=== PATIENT | male | born 1940 | race Caucasian/White ===

== ENCOUNTER 2018-04-11 13:53 | Emergency (ER) | payer BC, MEDICARE ==
[2018-04-11] MEDS ORDERED: Aspirin 81 mg CHEW TAB* 81 MG TAB.CHEW PO ONE (14:26)
[2018-04-11 15:51] LABS: ABS Basophils 0.1 10^3/ul (0-0.2); ABS Eosinophils 0.6 10^3/ul (0-0.6); ABS Lymphocytes 2.5 10^3/ul (1.0-4.8); ABS Monocytes 1.2 10^3/ul (0-0.8); ABS Neutrophils 6.6 10^3/ul (1.5-7.7); ABS Nucleated RBC 0 10^3/ul; Eosinophil % 5.1 %; Hematocrit 45 % (42-52); Hemoglobin 15.2 g/dl (14.0-18.0); Lymphocyte % 23.2 %; Mean Corpuscular HGB Conc 34 g/dl (31-36); Mean Corpuscular Hemoglobin 32 pg (27-31); Mean Corpuscular Volume 95 fL (80-94); Nucleated Red Blood Cells % 0; Platelet Count 209 10^3/ul (150-450); Red Blood Count 4.71 10^6/ul (4.00-5.40); Red Cell Distribution Width 14 % (10.5-15)
[2018-04-11 15:58] LABS: Activated Partial Thrombo Time 29.5 seconds (26.0-36.3); INR 0.98 (0.77-1.02)
[2018-04-11 16:06] LABS: Albumin 4.2 g/dL (3.2-5.2); Albumin/Globulin Ratio 1.4 (1-3); BUN/Creatinine Ratio 21.2 (8-20); Calcium 9.8 mg/dL (8.6-10.3); EGFR Non-African American 63.3 (>60); Magnesium 1.9 mg/dL (1.9-2.7); Potassium 4.7 mmol/L (3.5-5.0); Total Bilirubin 0.6 mg/dL (0.2-1.0); Total Protein 7.2 g/dL (6.4-8.9)
[2018-04-11 16:11] LABS: Myoglobin 26.2 ng/mL (17.4-105.7)
[2018-04-11 16:16] LABS: Urine Appearance Clear; Urine Bacteria Absent (Absent); Urine Bilirubin Negative (Negative); Urine Blood 1+ (Negative); Urine Color Yellow; Urine Glucose Negative (Negative); Urine Ketones Negative (Negative); Urine Nitrite Negative (Negative); Urine Protein Negative (Negative); Urine Red Blood Cell Trace(0-2/hpf) (Absent); Urine Specific Gravity 1.016 (1.010-1.030); Urine Urobilinogen Negative (Negative); Urine White Blood Cell Trace(0-5/hpf) (Absent)
--- NOTE | 2018-04-11 16:49 | ED ---
Respiratory - HPI Summary HPI Summary: Patient is a 77-year-old male presenting to the ED from his doctor's office, Dr. Rodas. Patient states over the past 6 weeks he has been having a cough with some wheezing. He denies any chest pain here. He denies any SOB. He denies any fevers, sweats, chills. He states he is feeling at his baseline, denies any weakness, urinary symptoms, back pain, abdominal pain, headache. History of hypertension and takes metoprolol and lisinopril. States he is medication compliant and has not missed a dose. Physician today noted an EKG change from 2016 and wanted to further workup. He continues to deny any chest pain, however comes to the ED for further evaluation. - History of Current Complaint Chief Complaint: EDGeneral Stated Complaint: GENERAL ILLNESS Time Seen by Provider: 04/11/18 14:10 Hx Obtained From: Patient Pain Intensity: 0 Character: Wheezing, Cough (Nonproductive) Sputum Amount: Scant Sputum Color: Clear Aggravating Factor(s): Nothing Alleviating Factor(s): Nothing Associated Signs and Symptoms: Negative - Allergy/Home Medications Allergies/Adverse Reactions: Allergies Allergy/AdvReac Type Severity Reaction Status Date / Time No Known Allergies Allergy Verified 06/17/15 06:23 Home Medications: Home Medications Doxycycline Hyclate 100 mg PO BID 04/11/18 [History Confirmed 04/11/18] Omeprazole 20 mg PO DAILY 04/11/18 [History Confirmed 04/11/18] PMH/Surg Hx/FS Hx/Imm Hx Previously Healthy: Yes Cardiovascular History: Reports: Hx Hypertension Musculoskeletal History: Reports: Hx Arthritis - RIGHT KNEE, LOWER BACK Sensory History: Reports: Hx Cataracts - BILATERAL, Hx Contacts or Glasses - READING GLASSES, Hx Hearing Aid - BILATERAL Opthamlomology History: Reports: Hx Cataracts - BILATERAL, Hx Contacts or Glasses - READING GLASSES - Surgical History Surgery Procedure, Year, and Place: UMBILICAL HERNIA REPAIR-[facility]. BILATERAL CARPAL TUNNEL RELEASE- [place] Hx Anesthesia Reactions: No - Immunization History Hx Pertussis Vaccination: No Immunizations Up to Date: Yes Infectious Disease History: No Infectious Disease History: Denies: Traveled Outside the [place] in Last 30 Days - Social History Occupation: Unemployed Lives: With Family Alcohol Use: Occasionally Hx Substance Use: No Substance Use Type: Reports: None Hx Tobacco Use: Yes Smoking Status (MU): Former Smoker Amount Used/How Often: 1 PPD X 10 YEARS Have You Smoked in the Last Year: No Review of Systems Negative: Fever, Chills, Fatigue, Skin Diaphoresis Negative: Epistaxis, Dental Pain, Sore Throat Negative: Palpitations, Chest Pain Positive: Cough. Negative: Shortness Of Breath Negative: Abdominal Pain, Vomiting, Diarrhea Negative: Arthralgia, Myalgia Skin: Negative Negative: Headache, Weakness, Paresthesia Psychological: Normal All Other Systems Reviewed And Are Negative: Yes Physical Exam Triage Information Reviewed: Yes Vital Signs On Initial Exam: Initial Vitals Temp Pulse Resp BP Pulse Ox 98.3 F 84 20 160/81 98 04/11/18 13:56 04/11/18 13:56 04/11/18 13:56 04/11/18 13:56 04/11/18 13:56 Vital Signs Reviewed: Yes Appearance: Positive: Well-Appearing, Well-Nourished Skin: Positive: Warm, Skin Color Reflects Adequate Perfusion Head/Face: Positive: Normal Head/Face Inspection Eyes: Positive: EOMI, MELITON, Conjunctiva Clear Neck: Positive: Supple, No Lymphadenopathy Respiratory/Lung Sounds: Positive: Clear to Auscultation, Breath Sounds Present Cardiovascular: Positive: RRR, Pulses are Symmetrical in both Upper and Lower Extremities. Negative: Leg Edema Left, Leg Edema Right Musculoskeletal: Positive: Normal, Strength/ROM Intact Neurological: Positive: Speech Normal Psychiatric: Positive: Normal, Affect/Mood Appropriate Diagnostics - Vital Signs Vital Signs Temp Pulse Resp BP Pulse Ox 04/11/18 15:42 80 20 110/79 97 04/11/18 15:08 61 15 116/75 95 04/11/18 15:00 63 12 97 04/11/18 14:45 71 19 141/78 96 04/11/18 14:09 78 12 97 04/11/18 14:08 158/81 04/11/18 13:56 98.3 F 84 20 160/81 98 - Laboratory Lab Results: Lab Results 04/11/18 04/11/18 04/11/18 Range/Units 14:26 15:35 15:35 WBC (3.5-10.8) 10^3/ul RBC (4.00-5.40) 10^6/ul Hgb (14.0-18.0) g/dl Hct (42-52) % MCV (80-94) fL MCH (27-31) pg MCHC (31-36) g/dl RDW (10.5-15) % Plt Count (150-450) 10^3/ul MPV (7.4-10.4) fL Neut % (Auto) % Lymph % (Auto) % [place] % (Auto) % Eos % (Auto) % Baso % (Auto) % Absolute Neuts (auto) (1.5-7.7) 10^3/ul Absolute Lymphs (auto) (1.0-4.8) 10^3/ul Absolute Monos (auto) (0-0.8) 10^3/ul Absolute Eos (auto) (0-0.6) 10^3/ul Absolute Basos (auto) (0-0.2) 10^3/ul Absolute Nucleated RBC 10^3/ul Nucleated RBC % INR (Anticoag Therapy) 0.98 (0.77-1.02) APTT 29.5 (26.0-36.3) seconds Sodium (135-145) mmol/L Potassium (3.5-5.0) mmol/L Chloride (101-111) mmol/L Carbon Dioxide (22-32) mmol/L Anion Gap (2-11) mmol/L BUN (6-24) mg/dL Creatinine (0.67-1.17) mg/dL Est GFR ( Amer) (>60) Est GFR (Non-Af Amer) (>60) BUN/Creatinine Ratio (8-20) Glucose (70-100) mg/dL Lactic Acid (0.5-2.0) mmol/L Calcium (8.6-10.3) mg/dL Magnesium (1.9-2.7) mg/dL Total Bilirubin (0.2-1.0) mg/dL AST (13-39) U/L ALT (7-52) U/L Alkaline Phosphatase (34-104) U/L Total Creatine Kinase (10-223) U/L CK-MB (CK-2) (0.6-6.3) ng/mL Myoglobin (17.4-105.7) ng/mL Troponin I (<0.04) ng/mL B-Natriuretic Peptide 123 H (<=100) pg/mL Total Protein (6.4-8.9) g/dL Albumin (3.2-5.2) g/dL Globulin (2-4) g/dL Albumin/Globulin Ratio (1-3) Urine Color Yellow Urine Appearance Clear Urine pH 5.0 (5-9) Ur Specific [place] 1.016 (1.010-1.030) Urine Protein Negative (Negative) Urine Ketones Negative (Negative) Urine Blood 1+ A (Negative) Urine Nitrate Negative (Negative) Urine Bilirubin Negative (Negative) Urine Urobilinogen Negative (Negative) Ur Leukocyte Esterase Negative (Negative) Urine WBC (Auto) Trace(0-5/hpf) (Absent) Urine RBC (Auto) Trace(0-2/hpf) (Absent) Urine Bacteria Absent (Absent) Urine Glucose Negative (Negative) 04/11/18 04/11/18 04/11/18 Range/Units 15:35 15:35 15:35 WBC 11.0 H (3.5-10.8) 10^3/ul RBC 4.71 (4.00-5.40) 10^6/ul Hgb 15.2 (14.0-18.0) g/dl Hct 45 (42-52) % MCV 95 H (80-94) fL MCH 32 H (27-31) pg MCHC 34 (31-36) g/dl RDW 14 (10.5-15) % Plt Count 209 (150-450) 10^3/ul MPV 9.0 (7.4-10.4) fL Neut % (Auto) 60.5 % Lymph % (Auto) 23.2 % [place] % (Auto) 10.6 % Eos % (Auto) 5.1 % Baso % (Auto) 0.6 % Absolute Neuts (auto) 6.6 (1.5-7.7) 10^3/ul Absolute Lymphs (auto) 2.5 (1.0-4.8) 10^3/ul Absolute Monos (auto) 1.2 H (0-0.8) 10^3/ul Absolute Eos (auto) 0.6 (0-0.6) 10^3/ul Absolute Basos (auto) 0.1 (0-0.2) 10^3/ul Absolute Nucleated RBC 0 10^3/ul Nucleated RBC % 0 INR (Anticoag Therapy) (0.77-1.02) APTT (26.0-36.3) seconds Sodium 137 (135-145) mmol/L Potassium 4.7 (3.5-5.0) mmol/L Chloride 102 (101-111) mmol/L Carbon Dioxide 29 (22-32) mmol/L Anion Gap 6 (2-11) mmol/L BUN 24 (6-24) mg/dL Creatinine 1.13 (0.67-1.17) mg/dL Est GFR ( Amer) 76.5 (>60) Est GFR (Non-Af Amer) 63.3 (>60) BUN/Creatinine Ratio 21.2 H (8-20) Glucose 97 (70-100) mg/dL Lactic Acid 0.9 (0.5-2.0) mmol/L Calcium 9.8 (8.6-10.3) mg/dL Magnesium 1.9 (1.9-2.7) mg/dL Total Bilirubin 0.60 (0.2-1.0) mg/dL AST 22 (13-39) U/L ALT 20 (7-52) U/L Alkaline Phosphatase 59 (34-104) U/L Total Creatine Kinase 60 (10-223) U/L CK-MB (CK-2) 2.0 (0.6-6.3) ng/mL Myoglobin 26.2 (17.4-105.7) ng/mL Troponin I 0.00 (<0.04) ng/mL B-Natriuretic Peptide (<=100) pg/mL Total Protein 7.2 (6.4-8.9) g/dL Albumin 4.2 (3.2-5.2) g/dL Globulin 3.0 (2-4) g/dL Albumin/Globulin Ratio 1.4 (1-3) Urine Color Urine Appearance Urine pH (5-9) Ur Specific [place] (1.010-1.030) Urine Protein (Negative) Urine Ketones (Negative) Urine Blood (Negative) Urine Nitrate (Negative) Urine Bilirubin (Negative) Urine Urobilinogen (Negative) Ur Leukocyte Esterase (Negative) Urine WBC (Auto) (Absent) Urine RBC (Auto) (Absent) Urine Bacteria (Absent) Urine Glucose (Negative) Result Diagrams: 04/11/18 15:35 04/11/18 15:35 Lab Statement: Any lab studies that have been ordered have been reviewed, and results considered in the medical decision making process. Disposition - Course Course Of Treatment: On physical examination, patient appears well, nondiaphoretic and in no acute distress. EKG shows sinus rhythm with a ventricular premature complex, left bundle branch block. Patient endorses RI with angioplasty in 1993. Attempted to retrieve most recent EKG from Apr 2017, unable to obtain (office is closed for holiday.) He continues to deny any pain. Troponin x2 obtained at 0.00. All of the labs obtained and are negative. A repeat EKG shows multifocal PVC's with no consecutive or couplets. I have offered admission to the patient as we are unsure if this LBBB and PVC's are new , however he declines as he is asymptomatic and offers no complaints. He will be discharged home with a close follow-up to his PCP. He has an appointment with Dr. Brandt, cardiology on 04/29/18. He understands his return precautions. at bedside understands the strict precautions as well and is OK with discharge. He is stable with normal VS on discharge. Discussed this case with Dr. Hendrix who recommends offered admission for further workup. Again patient declines admission. - Differential Dx - Cardiopulmonary Differential Diagnoses - Cardiopulmonary: CAD, Cardiomyopathy - Diagnoses Provider Diagnoses: Cough, LBBB (left bundle branch block) Discharge - Sign-Out/Discharge Documenting (check all that apply): Patient Departure - Discharge Plan Condition: Stable Disposition: HOME Referrals: David Brandt MD [Medical Doctor] - Clark KRUGER,Brandon Clark [Primary Care Provider] - Additional Instructions: Please follow up with PCP as well as Dr. Brandt If you develop any worsening/changing symptoms - you need to come to the ED immediately - Billing Disposition and Condition Condition: STABLE Disposition: Home
[2018-04-11 17:42] VITALS: BP 146/79
== END 2018-04-11 17:40 | disposition home or self-care (01) ==
LOC: ED 13:53
DX: R05 Cough (principal); I44.7 Left bundle-branch block, unspecified; I10 Essential (primary) hypertension; Z87.891 Personal history of nicotine dependence
CPT/HCPCS: 36415; 71046; 80053; 81003; 81015; 82550; 82553; 83605; 83735; 83874; 83880; 84484; 85025; 85610; 85730; 87086; 93005; 99282

== ENCOUNTER 2020-01-29 11:29 | Observation (INO) ==
[~2020-01-29 11:29] MED LIST: Buffered Lidocaine 1% SYRIN 1 ml INTRADERM ONE; Bupivacaine 0.5% SDV PF 30ML VIAL ONE; Dexamethasone IV 4 MG/ML VIAL 1 ml VIAL IV SLOW PU ONE; Dexamethasone IV 4 MG/ML VIAL 1 ml VIAL ONE; HYDROmorphone 1 MG/1 ML SYRINGE IV PRN; Lactated Ringers 1000 ml BAG 1,000 ML IV SCH; Lactulose 30 ml UDC PO PRN; Lidocaine 1% w EPI 1:100,000 MDV 20 ML VIAL ONE; Lidocaine 2% PF 5 ML VIAL ONE; Magnesium Hydroxide LIQ 30 ML UDC PO PRN; Midazolam 2 mg/2 ml VIAL 1 mg/ml 2 ml VIAL (2 mg) ONE; Morphine 2 MG/ML SYRINGE IV PRN; Naloxone 0.4 mg VIAL 0.4 mg/ml 1 ml VIAL IV PRN; Ondansetron 4 mg VIAL 2 MG/ML 2 ml VIAL IV PRN; Ondansetron 4 mg VIAL 2 MG/ML 2 ml VIAL ONE; Ondansetron ODT 4 mg TAB 4 MG TAB PO PRN; Phenylephrine IV 10 MG/ML 1 ml VIAL ONE; Propofol 10 MG/ML 20 ML BTL ONE; Vancomycin 1,000 MG VIAL ONE; ceFAZolin 1 GM ADVAN 1 GM ADDV.VIAL IVPB ONE; diPHENhydraMINE 25 mg TAB PO PRN; diPHENhydraMINE IV 50 MG/ML 1 ml VIAL (BENADRYL) IV PRN; fentaNYL 100 mcg/2 ml 50 MCG/ML VIAL IV PRN
[2020-01-29] MEDS: D5W 1/2 NS 1000 ml BAG 1,000 ML IV SCH ×2 (12:03→21:40)
[2020-01-29] MEDS: ceFAZolin 1 GM ADVAN 1 GM in NS 0.9% 50 ML 50 ML IVPB SCH (16:40)
[2020-01-29] MEDS: Magnesium Hydroxide LIQ 30 ML UDC PO SCH (21:24)
[2020-01-30] MEDS: ceFAZolin 1 GM ADVAN 1 GM in NS 0.9% 50 ML 50 ML IVPB SCH ×2 (00:25→08:19)
[2020-01-30 07:13] LABS: Hematocrit 34 % (42-52); Hemoglobin 11.6 g/dL (14.0-18.0); Mean Platelet Volume 9.3 fL (7.4-10.4); Platelet Count 184 10^3/uL (150-450)
[2020-01-30 07:33] LABS: BUN/Creatinine Ratio 22.4 (8-20); Calcium 8.5 mg/dL (8.6-10.3); EGFR African American 89.7 (>60); EGFR Non-African American 74.2 (>60); Potassium 4.2 mmol/L (3.5-5.0)
[2020-01-30] MEDS ORDERED: Aspirin EC 81 mg TAB.EC (enteric coated) PO SCH (09:00)
[2020-01-30] MEDS ORDERED: Rosuvastatin 20 mg TAB (NF) PO SCH (09:00)
[2020-01-30] MEDS ORDERED: Vitamin THERAPEUTIC TAB PO SCH (09:00)
[2020-01-30] MEDS: Magnesium Hydroxide LIQ 30 ML UDC PO SCH (09:00)
[2020-01-30 11:16] VITALS: BP 112/63
== END 2020-01-30 13:28 | disposition home or self-care (01) ==
LOC: OR 11:29 → INTOOBSV 11:30 → SSU 11:30
PROVIDERS: ADMIT Orthopaedic Surgery; ATTEND Orthopaedic Surgery